=== PATIENT | female | born 1985 | race Caucasian/White ===

== ENCOUNTER 2019-02-21 15:31 | Inpatient (IN) | payer OTHER ==
[~2019-02-21] VITALS: Ht 154.9 cm; Wt 90.7 kg
[2019-02-21 17:51] VITALS: BP_SYST 118
[2019-02-21] MEDS ORDERED: LR 1,000 ML IV ONE (18:20)
[2019-02-21] MEDS ORDERED: CEFAZOLIN 2 GM IVPB PREMIX 50 ML IV ONE (18:30)
[2019-02-21 19:14] LABS: BILIRUBIN,URINE NEGATIVE (NEGATIVE); BLOOD, URINE NEGATIVE (NEGATIVE); CLARITY/URINE SL CLOUDY (CLEAR); COLOR,URINE YELLOW (YELLOW); GLUCOSE,URINE NEGATIVE (NEGATIVE); KETONES,URINE 3+ (NEGATIVE); LEUKOCYTE ESTERASE ,URINE 3+ (NEGATIVE); NITRITE, URINE NEGATIVE (NEGATIVE); PROTEIN URINE TRACE (NEGATIVE)
[2019-02-21 19:17] LABS: BASOPHILS % (AUTO) 0.4 % (0.0-2.0); EOSINOPHILS # (AUTO) 0.1 K/uL (0.0-0.4); EOSINOPHILS % (AUTO) 0.8 % (0.0-4.0); HEMATOCRIT 34.7 % (36-48); HEMOGLOBIN 11.5 g/dL (12.0-16.0); LYMPHOCYTES # (AUTO) 1.4 K/uL (1.0-5.5); LYMPHOCYTES % (AUTO) 17.5 % (20.5-51.5); MEAN CORPUSCULAR HEMOGLOBIN 30 pg (27-31); MEAN CORPUSCULAR HGB CONC 33 % (32-36); MEAN CORPUSCULAR VOLUME 89 fL (79.0-98.0); MONOCYTES # (AUTO) 0.5 K/uL (0.0-1.0); MONOCYTES % (AUTO) 6.1 % (1.7-9.3); NEUTROPHILS # (AUTO) 6.1 K/uL (1.8-7.7); NEUTROPHILS % (AUTO) 75.2 % (40.0-70.0); PLATELET COUNT (AUTO) 127 K/uL (130-430); RED BLOOD CELL COUNT(AUTO) 3.89 MIL/uL (4.2-6.2); RED CELL DISTRIBUTION WIDTH 14.6 % (9.0-15.0); WHITE BLOOD COUNT (AUTO) 8.1 K/uL (4.8-10.8)
[2019-02-21 19:44] LABS: BACTERIA,URINE MODERATE /HPF (None Seen); RBC,URINE 0-3 /HPF (0-3)
[2019-02-21 19:45] LABS: MUCUS,URINE None Seen /LPF (None Seen)
[2019-02-21] MEDS ORDERED: TEMAZEPAM 15 MG CAPSULE PO PRN (21:00)
[2019-02-21] MEDS ORDERED: KETOROLAC TROMETHAMINE 60 MG/2 ML VIAL IM PRN (21:30)
[2019-02-21] MEDS ORDERED: NALBUPHINE HCL 10 MG/ML AMP IVP PRN (21:30)
[2019-02-21] MEDS ORDERED: DIPHENHYDRAMINE INJ 50 MG/ML VIAL IVP PRN (21:30)
[2019-02-21] MEDS ORDERED: ONDANSETRON HCL 4 MG/2 ML VIAL IVP PRN (21:30)
[2019-02-21] MEDS ORDERED: NALOXONE HCL 0.4 MG/ML AMP (NARCAN) IVP PRN ×2 (21:30)
[2019-02-21] MEDS ORDERED: fentaNYL CITRATE/PF 100 MCG/2 ML AMP IVP PRN ×2 (21:30)
[2019-02-21] MEDS ORDERED: MORPHINE SULFATE 10MG/10ML PF AMP SP SCH (21:30)
[2019-02-21] MEDS ORDERED: OXYTOCIN/0.9 % SODIUM CHLORIDE 1,000 ML IV ONE ×2 (22:47→23:46)
[2019-02-21] MEDS ORDERED: LR 1,000 ML IV SCH (22:47)
[2019-02-21 22:50] VITALS: BP_SYST 97
[2019-02-21] MEDS ORDERED: BUPIVACAINE /DEX PF 0.75% SPINAL 2 ML AMP INJ ONE (22:55)
[2019-02-21] MEDS ORDERED: NS IRRIG SOLN 1000 ML IR ONE (22:55)
[2019-02-21] MEDS ORDERED: MORPHINE SULFATE 10MG/10ML PF AMP EP ONE (22:55)
[2019-02-21] MEDS ORDERED: MIDAZOLAM HCL 5 MG/ML VIAL (VERSED) IV ONE (22:55)
[2019-02-21] MEDS ORDERED: LR 1,000 ML IV.SOLN IV ONE (22:55)
[2019-02-21] MEDS ORDERED: KETOROLAC TROMETHAMINE 30 MG VIAL ONE (22:55)
[2019-02-21] MEDS ORDERED: DIPH-TET-PERTUS Vaccine 0.5 ML VIAL (ADACEL) I.M. PRN (23:00)
[2019-02-21] MEDS ORDERED: OXYCODONE/ACETAMINOPHEN 5-325 TABLET PO PRN ×2 (23:00)
[2019-02-21] MEDS ORDERED: MEASLES,MUMPS&RUBELLA VACC/PF 12500 UNIT/0.5 ML VIAL SUBQ PRN (23:00)
[2019-02-21] MEDS ORDERED: LANOLIN 7 GM OINT. TP PRN (23:00)
[2019-02-21] MEDS ORDERED: RHO(D) IMMUNE GLOBULIN/MALTOSE 1500 UNITS/1.3 ML (WINHRO) IM PRN (23:00)
[2019-02-22] MEDS ORDERED: IBUPROFEN 600 MG TABLET PO SCH
[2019-02-22] MEDS ORDERED: CEFAZOLIN 1 GM IVPB PREMIX 50 ML IV SCH
[2019-02-22] MEDS: CEFAZOLIN 1 GM IVPB PREMIX 50 ML IV SCH ×3 (03:52→16:13)
[2019-02-22] MEDS: SIMETHICONE 80 MG TAB.CHEW PO PRN ×3 (05:17→22:15)
[2019-02-22 07:42] LABS: BASOPHILS % (AUTO) 0.4 % (0.0-2.0); EOSINOPHILS % (AUTO) 0.5 % (0.0-4.0); HEMATOCRIT 28.3 % (36-48); HEMOGLOBIN 9.6 g/dL (12.0-16.0); LYMPHOCYTES # (AUTO) 1.2 K/uL (1.0-5.5); LYMPHOCYTES % (AUTO) 14.4 % (20.5-51.5); MEAN CORPUSCULAR HEMOGLOBIN 30 pg (27-31); MEAN CORPUSCULAR HGB CONC 34 % (32-36); MEAN CORPUSCULAR VOLUME 89 fL (79.0-98.0); MONOCYTES # (AUTO) 0.5 K/uL (0.0-1.0); MONOCYTES % (AUTO) 6.5 % (1.7-9.3); NEUTROPHILS # (AUTO) 6.4 K/uL (1.8-7.7); NEUTROPHILS % (AUTO) 78.2 % (40.0-70.0); PLATELET COUNT (AUTO) 110 K/uL (130-430); RED BLOOD CELL COUNT(AUTO) 3.17 MIL/uL (4.2-6.2); RED CELL DISTRIBUTION WIDTH 14.3 % (9.0-15.0); WHITE BLOOD COUNT (AUTO) 8.1 K/uL (4.8-10.8)
[2019-02-22] MEDS: IBUPROFEN 600 MG TABLET PO SCH ×2 (12:48→18:56)
[2019-02-22] MEDS: DOCUSATE SODIUM 100 MG CAPSULE PO PRN (22:15)
[2019-02-23] MEDS: IBUPROFEN 600 MG TABLET PO SCH ×4 (00:13→18:02)
[2019-02-23] MEDS: SIMETHICONE 80 MG TAB.CHEW PO PRN (09:08)
[2019-02-24] MEDS: IBUPROFEN 600 MG TABLET PO SCH ×3 (05:42→13:39)
[2019-02-24] MEDS: SIMETHICONE 80 MG TAB.CHEW PO PRN (13:39)
[2019-02-24] MEDS: DOCUSATE SODIUM 100 MG CAPSULE PO PRN (13:39)
== END 2019-02-24 17:00 | disposition home or self-care (01) | DRG 540 ==
LOC: OBSVTOIN 17:13 → SPU 17:13
PROVIDERS: ADMIT Obstetrics & Gynecology; ATTEND Obstetrics & Gynecology
PROC: 10D00Z1 Extraction of Products of Conception, Low, Open Approach (ICD-10-PCS; principal; 2019-02-21 21:45)
DX: O32.1XX0 Maternal care for breech presentation, not applicable or unspecified (principal); R71.0 Precipitous drop in hematocrit; Z37.0 Single live birth; Z3A.00 Weeks of gestation of pregnancy not specified
CPT/HCPCS: 36415; 81000-TC; 85025; 86592; 86886; 86900; 86901; 90715; 94760; J0690; J1885; J2250; J2274; J2590; J3490; J7120